=== PATIENT | female | born 1950 | race Caucasian/White ===

== ENCOUNTER 2017-08-01 08:59 | Inpatient (IN) | payer MEDICARE ==
[~2017-08-01] VITALS: Ht 167.6 cm; Wt 65.8 kg
[2017-08-01] VITALS (11 sets, daily range): BP systolic 93–131; BP diastolic 47–60
--- NOTE | ~2017-08-01 | PROC ---
[address] [address] PROCEDURE REPORT Name: LEAH MARK Room: [address] IN M.R.#: [id number] Admission: 08/01/17 Attend Phys: Seferino Dumont MD Discharge: 08/09/17 Date of : 50 Report #: [id number] THIS REPORT FOR: //name// See Provation report in Perceptive 7 content. By: [id number] Records Staff [facility] /KARLEE
--- NOTE | ~2017-08-01 | PROC ---
[address] [address] PROCEDURE REPORT Name: LEAH MARK Room: [address] IN M.R.#: [id number] Admission: 08/01/17 Attend Phys: Seferino Dumont MD Discharge: Date of : 50 Report #: [id number] THIS REPORT FOR: //name// For GI report, please see the Provation report in Perceptive 7 content. By: [id number] Records Staff [facility] /KARLEE
[~2017-08-01 08:59] MED LIST: ACID REDUCER200 MG PO; ASPIR 8181 MG PO; NORCO 5-325 TA1 EACH PO; PLAVIX 75 MG TA75 M1 PO; PROTONIX40 M2 PO
[2017-08-01 11:07] LABS: ABSOLUTE BASOPHILS 0.1 thou/uL (0.0-0.2); ABSOLUTE EOSINOPHILS 0.3 thou/uL (0.0-0.7); ABSOLUTE LYMPHOCYTES 1.2 thou/uL (0.8-5.3); ABSOLUTE MONOCYTES 0.3 thou/uL (0.0-1.2); ABSOLUTE NEUTROPHILS 4.2 thou/uL (1.6-8.1); BASOPHILS 1.2 %; EOSINOPHILS 5.3 %; HEMATOCRIT 24.8 % (37.0-47.0); HEMOGLOBIN 8.5 gm/dL (12.0-15.0); LYMPHOCYTES 19.6 %; MCH 32.1 pg (26.0-34.0); MCHC 34.2 g/dL (28.0-37.0); MCV 93.8 fL (80.0-100.0); MONOCYTES 4.7 %; MPV 7.9 fl. (7.2-11.1); NUCLEATED RBCS 0 /100WBC; PLATELET COUNT* 260 thou/uL (150-400); POLYS 69.2 %; RBC 2.65 mil/uL (4.20-5.00); RDW-CV 15.2 % (10.5-14.5); WBC 6.1 thou/uL (4.0-11.0)
[2017-08-01 11:23] LABS: CALCIUM 8.5 mg/dL (8.5-10.1); CREATININE 0.9 mg/dL (0.6-1.3); POTASSIUM 3.8 mmol/L (3.5-5.1)
[2017-08-01 18:05] LABS: HEMATOCRIT 19.8 % (37.0-47.0); HEMOGLOBIN 6.7 gm/dL (12.0-15.0)
--- NOTE | 2017-08-01 20:06 | NUR ---
PT ADMITTED TO ICU BED 4 AT 1835, S/P RLE FEM-POP. RIGHT GROIN DRESSING WITH 2 QUARTER SIZED AREAS OF DRIED DRAINAGE, CONFIRMED BY DAY RN THAT THIS IS CONSISTANT WITH HER PREVIOUS ASSESSMENT AND HAS NOT EXTENDED. PT REPORTED 10/10 RLE PAIN, PRN FENTANYL GIVEN ORDERED WITH DECREASE IN PAIN TO 5/10 WHICH PT STATES IS TOLERABLE. BLE PEDAL AND DORSALIS PEDIS PULSES CAN BE HEARD ON DOPPLER. SEE ADMIT HISTORY AND ASSESSMENT. PT ORIENTED TO ROOM AND CALL LIGHT, VERBALIZED UNDERSTANDING. FAMILY AT BEDSIDE. CALL LIGHT WITHIN REACH.
[2017-08-02] VITALS (10 sets, daily range): BP systolic 84–123; BP diastolic 38–64
[2017-08-02 03:20] LABS: HEMOGLOBIN 7.9 gm/dL (12.0-15.0); MCH 31.7 pg (26.0-34.0); MCHC 34.1 g/dL (28.0-37.0); MCV 92.9 fL (80.0-100.0); MPV 8.9 fl. (7.2-11.1); NUCLEATED RBCS 0 /100WBC; PLATELET COUNT* 232 thou/uL (150-400); RBC 2.48 mil/uL (4.20-5.00); RDW-CV 15.1 % (10.5-14.5); WBC 10.4 thou/uL (4.0-11.0)
[2017-08-02 03:29] LABS: CALCIUM 7.5 mg/dL (8.5-10.1); CREATININE 1.1 mg/dL (0.6-1.3); POTASSIUM 4.5 mmol/L (3.5-5.1)
--- NOTE | 2017-08-02 04:07 | NUR ---
PT C/O NEW BURNING SENSATION IN RLE AT KNEE AND ANKLE LEVEL. RLE WAS ELEVATED AND HOB WAS DECREASED WHICH PT INITIALLY REPORTED DECREASED THE PAIN. PT NOW REPORTING THAT BURNING SENSATION IS AGAIN INCREASING. DISTAL PULSES DOPPLERED AND THERE IS NO NOTICABLE DECREASE IN AMPLITUDE OF PULSES, NO APPRECIATED NEW SWELLING. DR BALAJI BRODERICK, NO NEW ORDERS. HE STATES THIS IS LIKELY CHRONIC NEUROPATHY AND THAT PT HAD ABSENT PULSES VIA DOPPLER PRIOR TO REVASCULARIZATION. PRN PAIN MEDS GIVEN ORDERED.
[2017-08-02 04:11] LABS: ABSOLUTE LYMPHOCYTES 0.5 thou/uL (0.8-5.3); ABSOLUTE MONOCYTES 0.2 thou/uL (0.0-1.2); ABSOLUTE NEUTROPHILS 9.7 thou/uL (1.6-8.1); ANISOCYTOSIS 1+; PLATELET ESTIMATE ADEQUATE; POLYCHROMASIA 1+
--- NOTE | 2017-08-02 06:28 | NUR ---
PROGRESSING TOWARD GOALS. PT TOLERATING PO INTAKE WITHOUT COMPLAINT OF NAUSEA. PARTIAL PAIN RELIEF OBTAINED VIA ALTERNATING PRN FENTANYL AND HYDROCODONE, PT REPORTS 5/10 TO BE ACCEPTABLE AND TOLERABLE LEVEL OF PAIN RELIEF. RIGHT GROIN DRESSING REMAINS UNCHANGED IN COMPARISON TO START OF SHIFT. SANTOS WRAP PLACED BY SURGERY REMAINS INTACT FROM GROIN TO TOES. ONE UNIT PRBC'S TRANSFUSED ORDERED, FOLLOW UP HGB 7.9. PT HAS BEEN TURNED Q2HR THROUGHOUT THE SHIFT. CALL LIGHT WITHIN REACH.
--- NOTE | 2017-08-02 11:55 | NUR ---
Spoke with pt. She was admitted to ICU after surgery yesterday. She said that after her procedure in March her leg felt great and she was walking without any problem. Very suddenly her leg became very painful and she was unable to walk. She had been using a walker at home, her bought her crutches several weeks ago and she has been using those. 'I think it is easier to get around with the crutches but I'm not sure I am using them correctly.' Pt plans on returning home with her at discharge. Discussed role of Case Mgt, will continue to follow.
--- NOTE | 2017-08-02 21:00 | NUR ---
PT. TRANSFERRED TO ROOM 223 @ 2033 VIA BED. REPORT GIVEN TO ROSIBEL PERALTA. ALL BELONGINGS SENT WITH PT.
[2017-08-03] VITALS (8 sets, daily range): BP systolic 91–117; BP diastolic 40–50
[2017-08-03 05:46] LABS: ABSOLUTE BASOPHILS 0.1 thou/uL (0.0-0.2); ABSOLUTE EOSINOPHILS 0.2 thou/uL (0.0-0.7); ABSOLUTE LYMPHOCYTES 1.7 thou/uL (0.8-5.3); ABSOLUTE MONOCYTES 0.5 thou/uL (0.0-1.2); ABSOLUTE NEUTROPHILS 4.9 thou/uL (1.6-8.1); BASOPHILS 0.7 %; EOSINOPHILS 3.3 %; LYMPHOCYTES 22.5 %; MCHC 34.1 g/dL (28.0-37.0); MCV 93.9 fL (80.0-100.0); MONOCYTES 6.8 %; MPV 8.5 fl. (7.2-11.1); NUCLEATED RBCS 0 /100WBC; PLATELET COUNT* 218 thou/uL (150-400); POLYS 66.7 %; RBC 2.06 mil/uL (4.20-5.00); RDW-CV 15.4 % (10.5-14.5); WBC 7.4 thou/uL (4.0-11.0)
[2017-08-03 06:05] LABS: HEMATOCRIT 19.3 % (37.0-47.0); HEMOGLOBIN 6.6 gm/dL (12.0-15.0)
[2017-08-03 06:14] LABS: ALBUMIN 2.3 g/dL (3.4-5.0); CALCIUM 7.7 mg/dL (8.5-10.1); CREATININE 0.8 mg/dL (0.6-1.3); POTASSIUM 3.8 mmol/L (3.5-5.1); TOTAL BILIRUBIN 0.2 mg/dL (<0.1-1.0); TOTAL PROTEIN 5.3 g/dL (6.4-8.2)
--- NOTE | 2017-08-03 08:15 | NUR ---
VSS. ASSUMED CARE IN AM. NSR. PT RIGHT FOOT AND PROCEDURE SITES. PAIN RELIEVED BY LOOSENING BANDAGES AND MEDS. PT ATE MINIMAL AMOUNTS OF BREAKFAST. IV LEFT AC SALINE LOCKED. PT LEFT WITH PERSONAL ITEMS IN REACH.
--- NOTE | 2017-08-03 08:49 | NUR ---
VSS, ASSUMED CARE IN THE AM, ASSEAAMENT PERFORMED AND CHARTED, FALL PRECAUTIONS IN PLACE AND CALL LIGHT IN REACH, PT IS ON 2L NC PRN, TRACING SR ON THE MONITOR, RIGHT GROIN SITE INTACT, PT HAS Pin in rifght groin 6 OUT OF 10, PT IS A&O4 AND HER GOAL IS TO SIT UP TO CHAIR AND COMPLETE BLOOD TRANSFUSE, WILL FOLLOW WITH PLAN OF CARE.
[2017-08-03 11:04] LABS: HEMATOCRIT 23.7 % (37.0-47.0); HEMOGLOBIN 7.8 gm/dL (12.0-15.0)
--- NOTE | 2017-08-03 18:14 | NUR ---
VSS. NSR. PAIN BEGINS NEAR ADMINISTRATION TIME OF NEXT PAIN MEDICATION, MAY BE RATED HIGH TEN BY PT. PT UP WITH PHYSICAL THERAPTY IN THE AFTERNOON TO CHAIR, THEN MOVED BACK TO BED. PT ATE ADEQUATE AMOUNT OF DINNER. FAMILY VISITED IN AFTERNOON. IV IS SALINE LOCKED, LOCATED IN LEFT AC. PT LEFT WITH NECESSARY ITEMS IN REACH AND IN NO PAIN.
[2017-08-04] VITALS (7 sets, daily range): BP systolic 96–127; BP diastolic 38–54
[2017-08-04 05:50] LABS: HEMATOCRIT 22.2 % (37.0-47.0); HEMOGLOBIN 7.6 gm/dL (12.0-15.0); MCH 31.3 pg (26.0-34.0); MCHC 34.3 g/dL (28.0-37.0); MCV 91.2 fL (80.0-100.0); MPV 8.5 fl. (7.2-11.1); RBC 2.43 mil/uL (4.20-5.00); RDW-CV 16.5 % (10.5-14.5); WBC 6.1 thou/uL (4.0-11.0)
[2017-08-04 06:27] LABS: ALBUMIN 2.3 g/dL (3.4-5.0); CALCIUM 7.7 mg/dL (8.5-10.1); CREATININE 0.9 mg/dL (0.6-1.3); MAGNESIUM 1.9 mg/dL (1.8-2.4); POTASSIUM 3.4 mmol/L (3.5-5.1); TOTAL BILIRUBIN 0.3 mg/dL (<0.1-1.0); TOTAL PROTEIN 5.5 g/dL (6.4-8.2)
--- NOTE | 2017-08-04 07:03 | NUR ---
PATIENT RESTED IN BED, NO ACUTE CHANGES. PATIENT DID NOT SHOW SIGNS OF DISTRESS. PATIENT BLOOD PRESSURE WAS LOW, PATIENT DID NOT SHOW SYMPTOMS. FALL PRECAUTIONS IN PLACE.
--- NOTE | 2017-08-04 07:20 | NUR ---
PATIENT LEG HAS BEEN ELEVATED.
--- NOTE | 2017-08-04 10:50 | NUR ---
VSS, ASSUMED CARE IN THE AM ASSESSMENT PERFORMED AND CHARTED, FALL PREACUTIONS IN PLACE AND CALL LIGHT IN REACH, PT IS A&04 AND ON RA AND UP WITH ONE AND WALKER, PT IS TRACING SR ON THE MONITOR, HER GOAL IS TO SIT UP IN CHAIR AND WORK WITH PT/OT AND WALK IN ROOM, PT HAS PAIN IN RIGHT LEG, WILL FOLLOW WITH PLAN OF CARE,
[2017-08-04 15:12] LABS: CALCIUM 7.6 mg/dL (8.5-10.1); CREATININE 0.9 mg/dL (0.6-1.3); MAGNESIUM 1.9 mg/dL (1.8-2.4); POTASSIUM 3.4 mmol/L (3.5-5.1)
--- NOTE | 2017-08-04 18:21 | NUR ---
VSS, PT IS PROGRESSING TOWARDS, SHE WORKED WITH PT/OT AND WALKED IN ROOM AND IN CARPENTER, WAS UP IN CHAIR FOR MEALSD AND HER PAIN HAS BEEN WELL CONTROLED, PT IS IN BED WITH CALL LIGHT IN REACH AND HOPURLY ROUNDS HAVE BEEN COMPLETED, SR ON THE MONITOR AND NO OTHER STATUS CHANGE NOTED AT THIS TIME.
[2017-08-05 04:00] VITALS: BP 100/46
--- NOTE | 2017-08-05 04:22 | NUR ---
ASSUMED PT CARE AT 1930, PT IS A&OX4, PT IS TRACING NSR ON THE MONITOR, ON RA SATTING MID TO HIGH 90'S. PT C/O PAIN ONCE THIS SHIFT, PRN PAIN MEDICATIONS GIVEN PER JUN, PT HAS 3 SITES FROM HER FEM POP REPAIR, BANDAGES STILL IN PLACE, PEDAL PULSES CHECKED WITH DOPLER MACHINE, PULSES PRESENT. BED IN LOW POSITION, CALL LIGHT IN REACH, BED ALARM ON, YELLOW ARM BAND AND SOCKS IN PLACE. HOURLY ROUNDING COMPLETED FOR PT SAFETY.
[2017-08-05 04:50] LABS: HEMATOCRIT 21.2 % (37.0-47.0); HEMOGLOBIN 7.2 gm/dL (12.0-15.0); MCH 31.2 pg (26.0-34.0); MCV 91.5 fL (80.0-100.0); RBC 2.31 mil/uL (4.20-5.00); RDW-CV 16.1 % (10.5-14.5); WBC 5.3 thou/uL (4.0-11.0)
[2017-08-05 05:41] LABS: CALCIUM 7.6 mg/dL (8.5-10.1); CREATININE 0.9 mg/dL (0.6-1.3); POTASSIUM 3.3 mmol/L (3.5-5.1)
[2017-08-05 08:14] VITALS: BP 112/48
--- NOTE | 2017-08-05 08:38 | NUR ---
ASSUMED CARE OF PATIENT AFTER REPORT THIS MORNING. PATIENT AWAKE, ALERT, AND ORIENTED APPROPRIATELY. PHYSICAL ASSESSMENT COMPLETED AND CHARTED. VITAL SIGNS STABLE. OXYGEN SATURATION WITHIN NORMAL LIMITS ON ROOM AIR. PATIENT IS UP WITH STANDBY ASSISTANCE. USES CALL LIGHT APPROPRIATELY. DENIES NEEDS AT THIS TIME. CALL LIGHT WITHIN REACH. NURSING WILL CONTINUE TO MONITOR.
[2017-08-05 12:02] VITALS: BP 122/59
[2017-08-05 15:58] VITALS: BP 111/41; BP 120/52; BP 131/75
--- NOTE | 2017-08-05 16:20 | NUR ---
PATIENT RECEIVING ONE UNIT OF BLOOD PER ORDER FROM DR. VENTURA. PROTONIX DRIP TO START AFTER BLOOD TRANSFUSION. SIGNS AND SYMPTOMS OF TRANSFUSION REACTION DISCUSSED WITH PATIENT. WILL CONTINUE TO MONITOR FOR FIRST 15 MINUTES OF TRANSFUSION.
--- NOTE | 2017-08-05 16:30 | NUR ---
NO S/S OF TRANSFUSION REACTION. BLOOD CONTINUES TO TRANSFUSE.
--- NOTE | 2017-08-05 17:54 | NUR ---
PATIENT REMAINS ALERT AND ORIENTED APPROPRIATELY. RECEIVING BLOOD AT THIS TIME. DENIES NEEDS. CALL LIGHT WITHIN REACH. NURSING WILL CONTINUE TO MONITOR.
[2017-08-05 18:39] VITALS: BP 111/41; BP 115/51; BP 120/52; BP 131/75
--- NOTE | 2017-08-05 19:17 | NUR ---
BLOOD TRANSFUSION COMPLETED. NO S/S OF REACTION. NURSING WILL CONTINUE TO MONITOR.
[2017-08-05 20:00] VITALS: BP 114/54
[2017-08-05 21:38] LABS: HEMATOCRIT 25.4 % (37.0-47.0); HEMOGLOBIN 8.6 gm/dL (12.0-15.0); MCH 30.6 pg (26.0-34.0); MCHC 33.8 g/dL (28.0-37.0); MCV 90.5 fL (80.0-100.0); RBC 2.8 mil/uL (4.20-5.00); RDW-CV 16.7 % (10.5-14.5); WBC 5.6 thou/uL (4.0-11.0)
[2017-08-06 00:11] VITALS: BP 119/54
[2017-08-06 04:00] VITALS: BP 134/63
[2017-08-06 05:00] LABS: HEMATOCRIT 25.4 % (37.0-47.0); HEMOGLOBIN 8.6 gm/dL (12.0-15.0); MCH 30.4 pg (26.0-34.0); MCHC 33.9 g/dL (28.0-37.0); MCV 89.5 fL (80.0-100.0); MPV 7.8 fl. (7.2-11.1); RBC 2.84 mil/uL (4.20-5.00); RDW-CV 17.2 % (10.5-14.5); WBC 5.3 thou/uL (4.0-11.0)
[2017-08-06 05:17] LABS: CALCIUM 7.7 mg/dL (8.5-10.1); CREATININE 0.9 mg/dL (0.6-1.3); MAGNESIUM 1.9 mg/dL (1.8-2.4); POTASSIUM 4.1 mmol/L (3.5-5.1)
--- NOTE | 2017-08-06 05:22 | NUR ---
PT CARE ASSUMED AFTER REPORT. ASSESSMENT COMPLETE. SR ON MONITOR. NPO FOR GI CONSULT. HGB 8.6 AFTER BLOOD TRANSFUSION. PRN PAIN MEDICATION GIVEN PER PT REQUEST. CALL LIGHT IN REACH. BED IN LOWEST POSITION. PROGRESSING TOWARDS GOALS.
[2017-08-06 08:00] VITALS: BP 107/50
[2017-08-06 12:07] VITALS: BP 136/82
--- NOTE | 2017-08-06 13:34 | NUR ---
ASSUMED CARE OF PATIENT THIS AM AT 0730. PATIENT IS ALERT AND ORIENTED X 4. SHE C/O INTERMITTENT PAIN TO HER RIGHT FOOT. PEDAL PULSES PRESENT BILATERALLY. CAP REFILL<3 SEC. PATIENT HAS WORKED WITH PT TODAY AND IS UP IN THE CHAIR. SHE CONTINUES ON A PROTONIX GTT AT 20/HR. PATIENT DENIES ABD PAIN AND NO STOOLS NOTED AT THIS TIME. TELE SHOWS SR. PATIENT MEDICATED FOR PAIN THROUGHOUT THE DAY. STARTED ON A CLEAR LIQUID DIET. WILL CONTINUE TO MONITOR LAB RESULTS.
[2017-08-06 15:15] VITALS: BP 124/70
[2017-08-06 20:00] VITALS: BP 120/43
[2017-08-07] VITALS (9 sets, daily range): BP systolic 100–141; BP diastolic 47–66
--- NOTE | 2017-08-07 03:49 | NUR ---
ASSUMED PT CARE AT 1930, PT IS A&OX4, PT C/O PAIN TO HER RIGHT FOOT, PT IS TRACING NSR ON THE MONITOR, ON RA SATTING MID TO HIGH 90'S. PT HAS PROTONIX GTT INFUSING PER JUN. PT IS UP WITH ONE TO THE BSC, PT HAD A BM THIS SHIFT. PT IS NPO THIS SHIFT FOR PENDING EGD IN THE AM. PT HAS 3 SITES FROM FEM POP REPAIR, SITES ARE COVERED WITH BANDAGE, THIS RN DID NOT VISUALIZE SITES. BED IN LOW POSITION, CALL LIGHT IN REACH, BED ALARM ON, YELLOW ARM BAND AND SOCKS IN PLACE. HOURLY ROUNDING COMPLETED FOR PT SAFETY.
[2017-08-07 05:26] LABS: ABSOLUTE BASOPHILS 0.1 thou/uL (0.0-0.2); ABSOLUTE EOSINOPHILS 0.3 thou/uL (0.0-0.7); ABSOLUTE LYMPHOCYTES 1.1 thou/uL (0.8-5.3); ABSOLUTE MONOCYTES 0.3 thou/uL (0.0-1.2); ABSOLUTE NEUTROPHILS 2.4 thou/uL (1.6-8.1); BASOPHILS 1.3 %; EOSINOPHILS 7.6 %; HEMATOCRIT 25.2 % (37.0-47.0); HEMOGLOBIN 8.6 gm/dL (12.0-15.0); LYMPHOCYTES 27.1 %; MCHC 34.2 g/dL (28.0-37.0); MCV 90.7 fL (80.0-100.0); MONOCYTES 6.8 %; MPV 7.8 fl. (7.2-11.1); NUCLEATED RBCS 0 /100WBC; PLATELET COUNT* 252 thou/uL (150-400); POLYS 57.2 %; RBC 2.78 mil/uL (4.20-5.00); RDW-CV 17.2 % (10.5-14.5); WBC 4.2 thou/uL (4.0-11.0)
[2017-08-07 05:57] LABS: ALBUMIN 2.2 g/dL (3.4-5.0); CALCIUM 8.1 mg/dL (8.5-10.1); CREATININE 0.9 mg/dL (0.6-1.3); POTASSIUM 4.3 mmol/L (3.5-5.1); TOTAL BILIRUBIN 0.4 mg/dL (<0.1-1.0); TOTAL PROTEIN 4.8 g/dL (6.4-8.2)
--- NOTE | 2017-08-07 09:34 | NUR ---
ASSUMED CARE OF PATIENT AFTER REPORT THIS MORNING. PATIENT AWAKE, ALERT, AND ORIENTED APPROPRIATELY. PHYSICAL ASSESSMENT COMPLETED AND CHARTED. NO COMPLAINTS OF PAIN. SCHEDULED MEDICATIONS GIVEN, SEE EMAR FOR DOCUMENTATION. VITAL SIGNS STABLE. OXYGEN SATURATION WITHIN NORMAL LIMITS ON ROOM AIR. PROTONIX GTT TRANSFUSING AT THIS TIME. PATIENT TRANSFERS AND AMBULATES WITH ASSISTANCE FROM STAFF. USES CALL LIGHT APPROPRIATELY. DENIES NEEDS AT THIS TIME. IS NPO FOR EGD THIS AFTERNOON. HAS NOT SIGNED CONSENT D/T STILL HAVING QUESTIONS ABOUT THE PROCEDURE. CALL LIGHT WITHIN REACH. NURSING WILL CONTINUE TO MONITOR.
--- NOTE | 2017-08-07 11:30 | NUR ---
PATIENT OFF UNIT AT THIS TIME FOR EGD. TRANSPORTED VIA WHEELCHAIR. WITHOUT IV. SURGERY RN NOTIFIED.
--- NOTE | 2017-08-07 14:50 | NUR ---
PATIENT RETURNED TO ROOM FROM EGD AT 1350. AWAKE, ALERT, AND ORIENTED APPROPRIATELY. NURSING WILL CONTINUE TO MONITOR.
--- NOTE | 2017-08-07 17:24 | NUR ---
PATIENT REMAINS ALERT AND ORIENTED APPROPRIATELY. STARTED COLONOSCOPY PREP, SEE EMAR FOR DOCUMENTATION. PATIENT HAS HAD TWO BOWEL MOVEMENTS SINCE PREP STARTED. FIRST BM WAS FORMED AND SOFT, BROWN IN COLOR. SECOND BOWEL MOVEMENT WAS NOT ASSESSED BY THIS NURSE. USES CALL LIGHT APPROPRIATELY. DENIES NEEDS AT THIS TIME. CALL LIGHT WITHIN REACH. NURSING WILL CONTINUE TO MONITOR.
[2017-08-08] VITALS (7 sets, daily range): BP systolic 104–151; BP diastolic 44–66
--- NOTE | 2017-08-08 02:44 | NUR ---
RECIEVED REPORT AND ASSUMED CARE OF PATIENT AT 1930. TECHNICAL SUPPORT COORDINATOR IN PLACE TRACING SR. ASSESSMENT AND VITALS COMPLETED CHARTED, VSS. PATIENT A&OX4, PATIENT VERY LETHARGIC AND STATES "IT'S LIKE SOMEBODY GAVE ME A SLEEPING PILL." PATIENT IS HAVING A DIFFICULT TIME STAYING AWAKE TO DRINK BOWEL PREP. PATIENT ENCOURAGED FREQUENTLY TO DRINK PREP. PATIENT HAS ONLY FINISHED HALF OF THE JUG. GOAL IS TO COMPLETE BOWEL PREP AND TO BE CLEARED OUT BY MORNING. CALL LIGHT WITHIN REACH
[2017-08-08 05:54] LABS: PROTIME 9.9 Seconds (9.20-11.50)
--- NOTE | 2017-08-08 05:59 | NUR ---
PATIENT PARTIALLY PROGRESSING TOWARDS GOALS: PATIENT'S BOWELS ARE MOSTLY CLEARED OUT. PATIENT HAS REQUIRED CONSISTENT ENCOURAGEMENT TO DRINK THE BOWEL PREP AND IS STILL NOT FINISHED. HOURLY ROUNDING OBSERVED. CALL LIGHT WITHIN REACH
--- NOTE | 2017-08-08 11:00 | NUR ---
ASSUMED CARE OF PATIENT THIS AM. PATIENT IS ALERT, FUSSY, WITH A BLUNT AFFECT TODAY. SHE HAS HAD DIFFICULTY FINISHING HER BOWEL PREP. STOOLS ARE WATERY AND CLEAR. PATIENT C/O CONTINUED RIGHT FOOT PAIN. DRESSINGS TO RIGHT LEG ARE DRY AND INTACT. TELE SHOWS SR. PATIENT NPO AT THIS TIME FOR COLONOSCOPY. MEDICATED EARLIER FOR FOOT PAIN WITH VERBALIZED DECREASE OF PAIN. PATIENT STATES THAT SHE DOES NOT KNOW THE RESULTS OF HER TESTS AND WHAT IS GOING ON. PROCEDURES EXPLAINED. PATIENT STATED THAT SHE IS STILL SOMEWHAT CONFUSED ABOUT HER DIAGNOSES.
--- NOTE | 2017-08-08 13:37 | NUR ---
I HAVE REVIEWED THE STUDENT'S CHARTING.
--- NOTE | 2017-08-08 13:49 | NUR ---
Nutrition: Pt assessed for LOS. She had colonoscopy = non-bleeding diverticulosis. Per GI note, high fiber diet prescribed. Pt was not in room at time of attempted visit, 13:30. RD left handouts on pt's table on fiber sources, high vs low fiber diets. Low risk.
--- NOTE | 2017-08-08 14:21 | NUR ---
Pt to have colon today. States she feels ok, but still wants to know whats going on. Following for dc needs.
--- NOTE | 2017-08-08 15:27 | OP ---
[address] [address] OPERATIVE REPORT Name: LEAH MARK Room: [address] IN M.R.#: [id number] Admission: 08/01/17 Attend Phys: Seferino Dumont MD Discharge: Date of : 50 Report #: [id number] THIS REPORT FOR: //name// CC: [facility] physician[facility] DATE OF SERVICE: 08/01/2017 PREOPERATIVE DIAGNOSES: Peripheral vascular disease, rest pain, right lower extremity. POSTOPERATIVE DIAGNOSES: Peripheral vascular disease, rest pain, right lower extremity. SURGEON: Lemuel Palacios DO MEDICAL NURSE: Eryn Babcock PA-C ANESTHESIA: General endotracheal anesthesia. PROCEDURE: 1. Repeat exposure of the right common femoral artery. 2. Thrombectomy, right aortobifemoral limb. 3. Aortogram. 4. Angioplasty of right iliac limb of aortobifemoral bypass. 5. Tibioperoneal trunk bypass with 6 mm Artegraft. 6. Exploration of saphenous vein found to be in adequate size for bypass. ESTIMATED BLOOD LOSS: 250 mL. SPECIMEN: None. COMPLICATIONS: None. CONDITION: Stable. DISPOSITION: ICU. INDICATIONS FOR THE PROCEDURE AND CONSENT: The patient is a 67-year-old female who is well known to me for previous interventions regarding right lower extremity. She had an aortobifemoral bypass done at [facility] by Dr. Jackson and attempted right SFA angioplasty and stent there as well. I was able to perform a right lower extremity angioplasty and stent for rest pain. This thrombosed. The patient underwent a thrombectomy and reintervention and ultimately underwent a fem above knee popliteal bypass with PTFE. This [address] [address] OPERATIVE REPORT Name: LEAH MARK Room: [address] IN M.R.#: [id number] Admission: 08/01/17 Attend Phys: Seferino Dumont MD Discharge: Date of : 50 Report #: [id number] ultimately failed as well. The patient had vein mapping, which demonstrated a saphenous vein to be possibly adequate for a fem below knee bypass, was thought to be 2-3 mm in size and patent. Recommendation for fem below knee bypass for limb salvage was discussed. The patient reports that if her bypasses fail that she would request amputation due to the severe pain that she has. Risks and benefits of infection, bleeding, limb loss, stroke, heart attack, and chronic pain despite intervention was discussed including nerve injury and likely previous neuropathy as discussed in previous notes. After all this, the patient wished to proceed, was consented and scheduled. PROCEDURE IN DETAIL: After timeout was performed, the patient was placed in supine position with circumferential sterile prep and drape of the right lower extremity. Ultrasound was utilized to identify the saphenous vein. It was noted to be adequate caliber in the groin and thigh; however, mid to distal thigh became small branched, but then dilated again in the below knee position. This was marked on the skin for later exploration. I then performed a medial incision below the knee, identified 1 saphenous branch which actually appeared to be a fairly healthy and appropriate for bypass. This was preserved. I then entered the posterior tibial space and identified the tibioperoneal trunk. I utilized Doppler. It was noted to be patent with monophasic flow. I then explored the saphenous vein further. Incidentally, I found saphenous vein that we tried, marked previously. Incidentally, I found vein tracts very deep within the thigh and was not thought to be associated with saphenous vein proximally. The saphenous vein identified by ultrasound was also dissected out. It was noted to be 1-2 mm ratty and had multiple branches. I made a counter incision in the lower thigh to see if I could distinguish the source of the better appearing vein. I did identify the saphenous vein; however, it again appeared small and diminutive and not usable. At this point, I abandoned the approach of in situ bypass and requested Artegraft to be brought into the room and prepared. At this point, I made a longitudinal incision over the femoral artery through previous scar tissue. Groin had been opened for aortobifemoral bypass and also previous fem-popliteal bypass revision. This was a heavily scarred groin and an additional 45 minutes to an hour was added to the case to identify the femoral artery. I was actually not able to identify the common femoral vessel, but did identify the previous PTFE graft. This was noted to be compressible and without thrombus, but did not have pulsatile flow. I opted to open this graft after administering 6000 units of heparin. I then advanced a #4 Carolina proximally to see if I can get inflow to the graft. I was able to restore flow, but it was a trickle flow. I did obtain a #6 Carolina and passed it well up into the aorta and retrieved it. Some fibrin scar was retrieved, but again the flow remained to be impatent. At this point, I was concerned about inflow and this was possibly one cause for her previous bypass failing. I then requested a C-arm and the team gowned and gloved after donning themselves with . Once in position, I advanced an [facility] [address] [place] [address] OPERATIVE REPORT Name: LEAH MARK Room: [address] IN .R.#: [id number] Admission: 08/01/17 Attend Phys: Seferino Dumont MD Discharge: Date of : 50 Report #: [id number] 11-Hebrew sheath, retrograded into the PTFE bypass and performed a retrograde angiogram which demonstrated the limb to be patent, although had appearance of being somewhat smaller than the other aortic limb likely due to the lining with fibrin. The proximal origin of the aortobifemoral had a severe stenosis greater than 90% was nearly occluded. I then obtained a Glidewire and advanced it beyond this area of stenosis and performed angioplasty with an 8 mm x 40 Kerby angioplasty balloon. Repeat aortogram demonstrated this to be patent. There was some concern for a small amount of floating thrombus at the origin of the iliac limb. I then again allowed forward bleeding through the graft and also passed a #6 Carolina again. Inflow was clearly restored and I did not wish to stent or re-balloon this area as I was concerned it potentially can move to the other side and likely was flushed with graft. Being satisfied of the inflow, I then clamped the graft proximally and distally. I then obtained the Artegraft and measured the length needed. It was very close to the full length of the Artegraft available. I therefore tunneled from the popliteal space in the popliteal canal up to the groin as this was the shortest distance of travel. I then performed the proximal anastomosis with 5-0 Prolene suture in an end-to-side fashion and restored blood flow into the proximal graft. It was noted to be quite pulsatile and vigorous. I then turned my attention to the distal anastomosis. I was able to again sharply dissect out the tibioperoneal trunk well. I placed small vessel loops proximally and on the posterior tibial and peroneal vessels with very gentle retraction. Using 11 blade and micro Wilson scissors, I performed an arteriotomy and end-to-side anastomosis was created after fashioning the Artegraft as a becker. Prior to complete closure, I allowed for backbleeding and this was noted to be vigorous and then closed the anastomosis and allowed forward bleeding to the graft to the point of a bulldog and then ultimately down the leg. Doppler signal was noted to be triphasic and became monophasic compression of the graft. I then checked signals at the ankle, which was noted to have a very strong peroneal artery signal which was triphasic. I was not able to appreciate a posterior tibial at this time. The skin appeared pink. The patient was noted to have a previous protamine reaction and heparin had been last redosed at approximately 50-55 minutes previously. There was some slight oozing from the proximal femoral bypass site. Two 7-0 Prolenes were used to suture these oozing sites and pressure was held. Fibrillar was also administered. None of this really slowed the oozing down. We ultimately decided to give protamine in 10-unit increments very slowly after discussion with the Anesthesia. This was done slowly and she did drop her blood pressure slightly perhaps 5-10 mmHg with each dose, but never had a profound hypotension. After 20 units of protamine, the oozing had dissipated and no additional protamine was required. Each wound was then copiously irrigated and closed in [address] [address] OPERATIVE REPORT Name: LEAH MARK Room: [address] IN M.R.#: [id number] Admission: 08/01/17 Attend Phys: Seefrino Dumont MD Discharge: Date of : 50 Report #: [id number] layers using 2-0 Vicryl, 3-0 Vicryl and ladan. The patient tolerated the procedure well. All lap, needle, instrument counts were correct. <ELECTRONICALLY SIGNED> By: Lemuel Palacios DO 08/08/17 1527 1730 [id number] Palacios DO /nt
--- NOTE | 2017-08-08 22:11 | NUR ---
RECIEVED REPORT AND ASSUMED CARE OF PATIENT AT 1930. UTILITY BILL COLLECTION CLERK IN PLACE TRACING SR. ASSESSMENT AND VITALS COMPLETED CHARTED, VSS. PATIENT A&OX4. PATIENT DENIES PAIN AND DISCOMFORT. IV PROTONIX GTT INFUSING PER ORDERS. PATIENT DENIES NEEDS AT THIS TIME. PATIENT'S GOAL IS TO INCREASE ACTIVITY PER PHYSICIAN'S ORDERS TO INCREASE CIRCULATION. RIGHT LE IS WRAPPED WITH SANTOS AND ELEVATED ON A PILLOW WHILE PATIENT IS IN BED. CALL LIGHT WITHIN REACH
[2017-08-09] VITALS (7 sets, daily range): BP systolic 104–118; BP diastolic 41–55
--- NOTE | 2017-08-09 04:11 | NUR ---
PATIENT PROGRESSING TOWARDS GOALS: PATIENT HAS BEEN INCREASING ACTIVITY TOLERATED AND AMBULATING TO BATHROOM. PATIENT DENIES PAIN BUT REPORTS SOME DISCOMFORT IN RIGHT FOOT. RIGHT FOOT ASSESSED, NO ABNORMAL FINDINGS. RIGHT LEG WRAPPED WITH SANTOS BANDAGE AND ELEVATED ON A PILLOW WHILE PATIENT IS IN BED. PATIENT C/O PAIN AT IV SITE. SITE RED AND TENDER TO TOUCH. PATIENT REFUSED ANOTHER IV DUE TO BEING A DIFFICULT STICK. PHYSICIAN NOTIFIED, ORDERS RECIEVED TO LEAVE IV OUT AND SWITCH PATIENT TO PO PROTONIX. HOURLY ROUNDING OBSERVED. CALL LIGHT WITHIN REACH
[2017-08-09 05:03] LABS: ABSOLUTE BASOPHILS 0.1 thou/uL (0.0-0.2); ABSOLUTE EOSINOPHILS 0.2 thou/uL (0.0-0.7); ABSOLUTE MONOCYTES 0.4 thou/uL (0.0-1.2); ABSOLUTE NEUTROPHILS 3.5 thou/uL (1.6-8.1); BASOPHILS 1.2 %; EOSINOPHILS 3.2 %; HEMATOCRIT 25.5 % (37.0-47.0); HEMOGLOBIN 8.5 gm/dL (12.0-15.0); LYMPHOCYTES 19.7 %; MCH 30.4 pg (26.0-34.0); MCHC 33.1 g/dL (28.0-37.0); MCV 91.7 fL (80.0-100.0); MONOCYTES 7.3 %; MPV 7.5 fl. (7.2-11.1); NUCLEATED RBCS 0 /100WBC; PLATELET COUNT* 268 thou/uL (150-400); POLYS 68.6 %; RBC 2.78 mil/uL (4.20-5.00); RDW-CV 16.7 % (10.5-14.5); WBC 5.1 thou/uL (4.0-11.0)
[2017-08-09 05:13] LABS: ALBUMIN 2.2 g/dL (3.4-5.0); CALCIUM 7.9 mg/dL (8.5-10.1); CREATININE 0.8 mg/dL (0.6-1.3); POTASSIUM 3.3 mmol/L (3.5-5.1); TOTAL BILIRUBIN 0.3 mg/dL (<0.1-1.0); TOTAL PROTEIN 4.9 g/dL (6.4-8.2)
--- NOTE | 2017-08-09 09:05 | NUR ---
PT CARE ASSUMED AT 0700. ASSESSMENT COMPLETED. PT DENIES PAIN, STATES HER FOOT IS "UNCOMFORTABLE" BUT DOES NOT WANT PAIN MEDICATION, SAYS SHE BELIEVES THE SANTOS BANDAGE IS JUST ANNOYING IT. PT ANXIOUS TO BE DISCHARGED TODAY.
--- NOTE | 2017-08-09 11:44 | NUR ---
PER DR SPEARS PAGED VASCULAR SURGERY REGARDING QUESTIONS ABOUT PT INCISIONS AND CARE AT DISCHARGE
[2017-08-09] MEDS ORDERED: GABAPENTIN 100100 MG PO (12:31)
[2017-08-09] MEDS ORDERED: PROTONIX40 M1 PO ×2 (12:33→12:34)
[2017-08-09] MEDS ORDERED: NORCO 5-325 TA1 EACH PO (12:35)
[2017-08-09] MEDS ORDERED: IRON325 PO (12:37)
--- NOTE | 2017-08-09 13:48 | NUR ---
1305- GAVE PT DISCHARGE INSTRUCTIONS, EDUCATION MATERIALS AND PRESCRIPTIONS. PT VERBALIZED UNDERSTANDING AND DENIED ANY MORE QUESTIONS. PT PICKING HER UP
--- NOTE | 2017-08-13 15:01 | CON ---
[address] [address] CONSULTATION Name: DEEDEELEAH Room: [address] IN M.R.#: [id number] Admission: 08/01/17 Attend Phys: Seferino Dumont MD Discharge: 08/09/17 Date of : 50 Report #: [id number] THIS REPORT FOR: //name// CC: Seferino Dumont [facility] physician/PCP Lemuel Palacios DO DICTATED BY: Mia Quick [facility] DATE OF SERVICE: 08/06/2017 Please note at the time of this dictation, the patient was seen and physically examined by myself. REASON FOR CONSULTATION: GI bleed. HISTORY OF PRESENT ILLNESS: This is a 67-year-old female who presented initially for revascularization of her right lower extremity with Dr. Lemuel Palacios, which was done on 08/01/2017. She was admitted there after the procedure and was doing fairly well. She was noted to be anemic postop in the 8s; however, over the weekend, she had a very black tarry stool dropping her hemoglobin down to 6.6. She got a unit of blood over the weekend and she has gotten a total of 3 units of blood over this past week with the last one being on 08/06/2017 and she got 2 units on 08/02/2017 and 08/03/2017 following surgery. Over the weekend, she had a very black tarry stool that was significant in amount. She states that she did have a colonoscopy back 4 or 5 years ago at [facility] in [place] in which she had polyps removed. She also underwent an EGD with Dr. Aguiar a couple of years ago for dysphagia and she was dilated at that time at [facility] in [place]. We will need to obtain those records at this time. The patient states in swallowing, she has intermittent difficulty, especially with meat over the last 2 years and at times, she will feel like something gets stuck and she may throw up. Last week, she states she was taking a lot of ibuprofen because her pain medicine ran out before she could have surgery on her right lower extremity. ALLERGIES: INFLUENZA VACCINES AND EGG. MEDICATIONS: From home include Protonix, Plavix, and aspirin. PAST MEDICAL HISTORY: Peripheral vascular disease, history of colon polyps. PAST SURGICAL HISTORY: In March, she had a bypass in her right leg. She has had an AAA bypass, stent in her right leg. She has had 4 vascular surgeries to that. She has had carpal tunnel. She has had her toenails removed bilaterally on her feet, hysterectomy, cholecystectomy, [place] [address] CONSULTATION Name: LEAH MARK Room: [address] [place] M.R.#: [id number] Admission: 08/01/17 Attend Phys: Seferino Dumont MD Discharge: 08/09/17 Date of : 50 Report #: [id number] FAMILY HISTORY: Noncontributory. SOCIAL HISTORY: Denies any tobacco, alcohol or illegal drug use. REVIEW OF SYSTEMS: Twelve-point review of systems is essentially negative except what is mentioned in the HPI. PHYSICAL EXAMINATION: VITAL SIGNS: Temperature 36.6, pulse 69, respirations 18, blood pressure 136/82. HEART: Regular rate and rhythm. LUNGS: Clear, but diminished. ABDOMEN: Soft, positive bowel sounds in all 4 quadrants with no masses or tenderness noted. LABORATORY DATA: Hemoglobin 8.6, she was 7.2 yesterday, got a unit of blood, hematocrit 25.4, white count is 5.3, platelets 253. Sodium 140, potassium 4.1, chloride 106, CO2 29, BUN is 12, creatinine 0.9, GFR 62. Glucose is 91. IMPRESSION: 1. Gastrointestinal bleed. 2. Melenic stool. 3. Anemia, status post 3 units. 4. History of colon polyps. 5. History of constipation. 6. Severe peripheral vascular disease. 7. Anticoagulant therapy. She is on Plavix and Lovenox currently. PLAN: 1. EGD tomorrow with Dr. Downey. 2. Continue her clear liquids. 3. Continue her Protonix. 4. Obtain records from [facility] from Dr. Aguiar who did her EGD and dilated her in the past and in the [facility] colonoscopy with pathology report. Thank you for allowing us to participate in this patient's care. Please do not hesitate to call with any questions in regard to this consult. ADDENDUM I have personally seen and examined the patient and reviewed labs and imaging studies. The patient with history of dysphagia and dilations in the past, who has recently undergone right leg revascularization and is currently on Lovenox and Plavix. She has had history of dysphagia with dilations, which she [place] [address] [place] [address] CONSULTATION Name: ISTAS,LEAH Room: [address] [place] .R.#: [id number] Admission: 08/01/17 Attend Phys: Seferino Dumont MD Discharge: 08/09/17 Date of : 50 Report #: [id number] responds to. The patient reports melenic stool and is anemic. She has received packed RBCs x 3. The patient also has history of colon polyps and is constipated. She is currently on PPI therapy. We will continue the PPI therapy and perform an upper endoscopy tomorrow. We would not be able to dilate her esophagus as she is on Plavix. <ELECTRONICALLY SIGNED> By: Pillo Downey MD 08/13/17 1501 [id number] Downey MD /nt
== END 2017-08-09 13:18 | disposition home or self-care (01) | DRG 252 ==
LOC: M.PRE 08:59 → M.TBA 10:16 → M.ICU 10:16 → M.PRE 13:03 → M.ICU 18:45 → M.2W 08-02 20:41
PROVIDERS: Family Medicine; Internal Medicine Gastroenterology; Surgery; ADMIT Internal Medicine
PROC: 04CK0ZZ Extirpation of Matter from Right Femoral Artery, Open Approach (ICD-10-PCS; principal; 2017-08-01)
PROC: 047C3ZZ Dilation of Right Common Iliac Artery, Percutaneous Approach (ICD-10-PCS; principal; 2017-08-01)
PROC: 30233N1 Transfusion of Nonautologous Red Blood Cells into Peripheral Vein, Percutaneous Approach (ICD-10-PCS; 2017-08-01)
PROC: 047K3ZZ Dilation of Right Femoral Artery, Percutaneous Approach (ICD-10-PCS; 2017-08-01)
PROC: B41D1ZZ Fluoroscopy of Aorta and Bilateral Lower Extremity Arteries using Low Osmolar Contrast (ICD-10-PCS; 2017-08-01)
PROC: 047L3ZZ Dilation of Left Femoral Artery, Percutaneous Approach (ICD-10-PCS; 2017-08-01)
PROC: 041 Lower Arteries, Bypass (ICD-10-PCS; 2017-08-01)
PROC: 04CL0ZZ Extirpation of Matter from Left Femoral Artery, Open Approach (ICD-10-PCS; 2017-08-01)
PROC: 0DJ08ZZ Inspection of Upper Intestinal Tract, Via Natural or Artificial Opening Endoscopic (ICD-10-PCS; 2017-08-07)
PROC: 0DJD8ZZ Inspection of Lower Intestinal Tract, Via Natural or Artificial Opening Endoscopic (ICD-10-PCS; 2017-08-08)
DX: I70.211 Atherosclerosis of native arteries of extremities with intermittent claudication, right leg (principal); K57.31 Diverticulosis of large intestine without perforation or abscess with bleeding; D62 Acute posthemorrhagic anemia; E44.0 Moderate protein-calorie malnutrition; K59.00 Constipation, unspecified; I95.9 Hypotension, unspecified; E87.6 Hypokalemia; K44.9 Diaphragmatic hernia without obstruction or gangrene; K64.8 Other hemorrhoids; R09.02 Hypoxemia; Z86.010 Personal history of colon polyps; Z79.01 Long term (current) use of anticoagulants; Z88.7 Allergy status to serum and vaccine; Z91.012 Allergy to eggs; Z90.49 Acquired absence of other specified parts of digestive tract; Z90.710 Acquired absence of both cervix and uterus; Z68.23 Body mass index [BMI] 23.0-23.9, adult; Z79.82 Long term (current) use of aspirin; Z79.899 Other long term (current) drug therapy